=== PATIENT | female | born 1985 | race Caucasian/White ===

== ENCOUNTER 2017-03-19 18:23 | Emergency (ER) | payer OTHER | END 2017-03-19 19:31 | disposition home or self-care (01) | DX: S61.211A Laceration without foreign body of left index finger without damage to nail, initial encounter (principal); W45.8XXA Other foreign body or object entering through skin, initial encounter ==

== ENCOUNTER 2017-08-17 15:45 | Emergency (ER) | payer OTHER ==
[2017-08-17 15:49] VITALS: BP 125/74
[2017-08-17] MEDS ORDERED: predniSONE 20 MG TABLET PO STA (16:00)
--- NOTE | 2017-08-17 16:04 | ED Physician Documentation ---
PD HPI SKIN - Stated complaint Stated Complaint: RASH/[id number] - Chief complaint Chief Complaint: Wound - History obtained from History obtained from: Patient, Family - History of Present Illness Timing - onset: How many days ago (3) Timing - duration: Days (3) Timing - details: Gradual onset Pain level max: 0 Pain level now: 0 Location: RLE, LLE Quality / character: Itchy, Painful, Raised. No: Vesicular, Crusted, Swelling, Draining Improved by: Other (hasn't taken anything) Associated symptoms: No: Fever, Myalgias, Joint pain, Headache, Facial swelling , Dyspnea, Abd pain, N/V/D, Urinary sx - Additional information Additional information: Patient is a 31-year-old female, 1 para 0 who is approximately 39 weeks . Applied tea tree oil to the bilateral lower extremities and broke out in a rash. Complains of increased itching. Has not talked to her doctor about this. Is not having any abdominal pain, back pain, vaginal bleeding or leakage of fluid. Review of Systems Constitutional: denies: Fever, Chills GI: denies: Nausea, Vomiting, Diarrhea Musculoskeletal: denies: Neck pain, Back pain Neurologic: denies: Headache PD PAST MEDICAL HISTORY - Past Medical History Past Medical History: No Cardiovascular: None Neuro: None - Past Surgical History Past Surgical History: Yes - Present Medications Home Medications: Ambulatory Orders Medication Instructions Recorded Confirmed Pnv95/Ferrous Fumarate/FA 1 each PO DAILY 03/19/17 08/17/17 [ Tablet] Prednisone 40 mg PO DAILY #10 tablet 08/17/17 - Allergies Allergies/Adverse Reactions: Allergies Allergy/AdvReac Type Severity Reaction Status Date / Time amoxicillin Allergy Unknown Verified 03/19/17 18:29 nickel Allergy Rash Verified 03/19/17 18:29 - Social History Does the pt smoke?: No Smoking Status: Never smoker Does the pt drink ETOH?: No Does the pt have substance abuse?: No - Immunizations Immunizations are current?: Yes - POLST Patient has POLST: No PD ED PE NORMAL - Vitals Vital signs reviewed: Yes - General General: Alert and oriented X 3, No acute distress - Abdomen Abdomen: Other (Gravid) - Derm Derm: Warm and dry, Other (Diffuse maculopapular exanthem to the bilateral lower extremities from mid thigh down to the ankles. Blanches easily. Mildly erythematous. No vesicles. No pustules.) - Neuro Neuro: Alert and oriented X 3 Results - Vitals Vitals: Vital Signs - 24 hr 08/17/17 15:47 Temperature 36.4 C L Heart Rate 72 Respiratory 18 Rate Blood Pressure 125/74 O2 Saturation 100 Oxygen O2 Source Room air PD MEDICAL DECISION MAKING - ED course Complexity details: considered differential, d/w patient, d/w family ED course: Patient is a 31-year-old female who presents to the emergency department with what appears to be a bilateral lower extremity contact dermatitis from tea tree oil. Discussed the case with [place] [facility] environmental engineering technician, Dr. Sauer, who states she can use Benadryl for itching and we will place the patient on oral prednisone. Patient counseled regarding signs and symptoms for which I believe and urgent re -evaluation would be necessary. Patient with good understanding of and agreement to plan and is comfortable going home at this time This document was made in part using voice recognition software. While efforts are made to proofread this document, sound alike and grammatical errors may occur. Departure - Departure Disposition: 01 Home, Self Care Clinical Impression: Contact dermatitis Qualifiers: Contact dermatitis type: allergic Contact dermatitis trigger: drugs in contact with skin Qualified Code(s): L23.3 - Allergic contact dermatitis due to drugs in contact with skin Condition: Good Instructions: ED Dermatitis Contact Follow-Up: Provider,Other [Primary Care Provider] - Within 1 week Prescriptions: Prednisone 40 mg PO DAILY #10 tablet Comments: [place] Return if you worsen. You are okay to take benadryl for itching as well. Discharge Date/Time: 08/17/17 16:25
[2017-08-17] MEDS ORDERED: predniSONE 10 MG TABLET ONE (16:17)
== END 2017-08-17 16:25 | disposition home or self-care (01) ==
LOC: ED 15:45
DX: O99.713 Diseases of the skin and subcutaneous tissue complicating pregnancy, third trimester (principal); Z3A.39 39 weeks gestation of pregnancy; L23.89 Allergic contact dermatitis due to other agents
CPT/HCPCS: 99283; A9270

== ENCOUNTER 2019-03-01 17:38 | Emergency (ER) | payer OTHER ==
[2019-03-01] MEDS ORDERED: IBUPROFEN 800 MG TABLET PO STA (18:56)
--- NOTE | 2019-03-01 19:00 | ED Physician Documentation ---
PD HPI HEENT - Stated complaint Stated Complaint: FLU SYMPT - Chief complaint Chief Complaint: Heent - History obtained from History obtained from: Patient - History of Present Illness Timing - onset: Last night (She became acutely ill last night with fever to 102, body aches, runny nose but no sore throat. She has been coughing. Nonproductive. No shortness of breath. Her son was recently sick with a similar illness. She denies recent travel.) Review of Systems Constitutional: reports: Fever, Chills, Myalgias, Fatigue Ears: denies: Ear pain Nose: reports: Rhinorrhea / runny nose Throat: denies: Sore throat Respiratory: reports: Cough. denies: Dyspnea PD PAST MEDICAL HISTORY - Past Medical History Cardiovascular: None - Past Surgical History Past Surgical History: Yes - Present Medications Home Medications: Ambulatory Orders Medication Instructions Recorded Confirmed Pnv95/Ferrous Fumarate/FA 1 each PO DAILY 03/19/17 08/17/17 [ Tablet] predniSONE [Prednisone] 40 mg PO DAILY #10 tablet 08/17/17 Ibuprofen [Motrin] 800 mg PO Q8H PRN #30 tablet 03/01/19 - Allergies Allergies/Adverse Reactions: Allergies Allergy/AdvReac Type Severity Reaction Status Date / Time amoxicillin Allergy Unknown Verified 03/01/19 17:48 nickel Allergy Rash Verified 03/01/19 17:48 - Social History Does the pt smoke?: No Smoking Status: Never smoker Does the pt drink ETOH?: No Does the pt have substance abuse?: No - Immunizations Immunizations are current?: Yes - POLST Patient has POLST: No PD ED PE NORMAL - Vitals Vital signs reviewed: Yes - General General: Alert and oriented X 3, No acute distress - HEENT HEENT: PERRL, Ears normal, Pharynx benign - Neck Neck: Supple, no meningeal sign, No bony TTP - Cardiac Cardiac: RRR, No murmur - Respiratory Respiratory: No respiratory distress, Clear bilaterally - Abdomen Abdomen: Soft, Non tender - Back Back: No CVA TTP, No spinal TTP - Derm Derm: Normal color, Warm and dry, No rash - Neuro Neuro: Alert and oriented X 3, Normal speech Results - Vitals Vitals: Vital Signs - 24 hr 03/01/19 17:45 Temperature 37.9 C H Heart Rate 107 H Respiratory 20 Rate Blood Pressure 138/85 H O2 Saturation 99 Oxygen O2 Source Room air - Labs Labs: Laboratory Tests 03/01/19 03/01/19 18:23 19:03 Urine Color YELLOW Urine Clarity CLEAR Urine pH 7.5 Ur Specific [place] <=1.005 Urine Protein NEGATIVE Urine Glucose (UA) NEGATIVE Urine Ketones NEGATIVE Urine Occult Blood TRACE-LYSE Urine Nitrite NEGATIVE Urine Bilirubin NEGATIVE Urine Urobilinogen 0.2 (NORMAL) Ur Leukocyte Esterase TRACE H Urine RBC 0-5 Urine WBC 4-5 Ur Squamous Epith Cells MOD Squamous H Urine Bacteria None Seen Ur Microscopic Review INDICATED Urine Culture Comments NOT INDICATED Urine HCG, Qual NEGATIVE Influenza A (Rapid) Negative Influenza B (Rapid) Negative PD MEDICAL DECISION MAKING - ED course ED course: This is a 33-year-old well-appearing woman who presents with an acute flulike illness. Flu swab negative. Conservative care and time off of work was advised. Departure - Departure Disposition: Home, Self Care Clinical Impression: Viral syndrome Condition: Good Record reviewed to determine appropriate education?: Yes Instructions: ED Viral Syndrome Prescriptions: Ibuprofen [Motrin] 800 mg PO Q8H PRN #30 tablet PRN Reason: PAIN &/OR FEVER Comments: Call your doctor to arrange a follow-up appointment, make the next available appointment. In the interim, return anytime if worse or if new symptoms develop. Drink plenty of fluids Your blood pressure was elevated today on check into the emergency department. This does not mean that you have hypertension, it is a common phenomenon to come to the emergency department and have elevated blood pressure. I recommend that you see your primary care physician within the week to have it rechecked when you are feeling better. Forms: Activity restrictions
[2019-03-01 19:23] LABS: BILIRUBIN,URINE NEGATIVE (NEGATIVE); GLUCOSE, URINE (UA) NEGATIVE (NEGATIVE); KETONES,URINE (UA) NEGATIVE (NEGATIVE); LEUKOCYTE ESTERASE, URINE TRACE (NEGATIVE); NITRITE,URINE NEGATIVE (NEGATIVE); OCCULT BLOOD,URINE TRACE-LYSE (NEGATIVE); PH,URINE 7.5 PH (5.0-7.5); PROTEIN,URINE NEGATIVE (NEGATIVE); UROBILINOGEN,URINE 0.2 (NORMAL) E.U./dL (NORMAL)
[2019-03-01 19:30] LABS: CLARITY,URINE CLEAR (CLEAR); HCG UR QUAL NEGATIVE
[2019-03-01 19:36] LABS: BACTERIA,URINE None Seen /HPF (None Seen); RBC,URINE 0-5 /HPF (0-5); SQUAMOUS EPITHELIAL CELL,UR MOD Squamous (<= Few)
[2019-03-01 20:03] VITALS: BP 126/82
== END 2019-03-01 20:18 | disposition home or self-care (01) ==
LOC: ED 17:38
DX: B34.9 Viral infection, unspecified (principal); R03.0 Elevated blood-pressure reading, without diagnosis of hypertension
CPT/HCPCS: 81001; 81025; 87275; 87276; 99283; A9270; 36415; 81003; 87086

== ENCOUNTER 2019-09-03 08:43 | Emergency (ER) | payer OTHER ==
[2019-09-03 08:57] VITALS: BP 108/78
[2019-09-03] MEDS ORDERED: CHERRY SYRUP 10 ML UDC PO ONE (09:16)
[2019-09-03] MEDS ORDERED: DEXAMETHASONE 10 MG/ML VIAL PO STA (09:16)
--- NOTE | 2019-09-03 09:46 | ED Physician Documentation ---
PD HPI HEENT - Stated complaint Stated Complaint: NAUSEA/BODY ACHES - Chief complaint Chief Complaint: General - History obtained from History obtained from: Patient, Family - History of Present Illness Timing - onset: How many days ago (2) Timing - duration: Days (2) Timing - details: Gradual onset, Still present Location: Throat Improves: Medication Worsens: Swalllowing Associated symptoms: Fever, Congestion, Rhinorrhea Similar symptoms before: Diagnosis (strep and viral infection) Recently seen: Not recently seen - Additional information Additional information: Previously well 33-year-old female has developed a sore throat and body aches beginning yesterday. She is having worsening through the night.She has had viral URI previously and strep previously Review of Systems Constitutional: reports: Fever, Myalgias, Fatigue Eyes: denies: Decreased vision Ears: denies: Ear pain Nose: reports: Rhinorrhea / runny nose, Congestion Throat: reports: Sore throat Cardiac: denies: Chest pain / pressure, Palpitations Respiratory: denies: Dyspnea, Cough GI: denies: Vomiting PD PAST MEDICAL HISTORY - Past Medical History Past Medical History: No Cardiovascular: None - Past Surgical History Past Surgical History: No - Present Medications Home Medications: Ambulatory Orders Medication Instructions Recorded Confirmed Pnv95/Ferrous Fumarate/FA 1 each PO DAILY 03/19/17 08/17/17 [ Tablet] predniSONE [Prednisone] 40 mg PO DAILY #10 tablet 08/17/17 Ibuprofen [Motrin] 800 mg PO Q8H PRN #30 tablet 03/01/19 - Allergies Allergies/Adverse Reactions: Allergies Allergy/AdvReac Type Severity Reaction Status Date / Time amoxicillin Allergy Unknown Verified 09/03/19 08:57 nickel Allergy Rash Verified 09/03/19 08:57 - Social History Does the pt smoke?: No Smoking Status: Never smoker Does the pt drink ETOH?: Yes Does the pt have substance abuse?: No - Immunizations Immunizations are current?: Yes - POLST Patient has POLST: No PD ED PE NORMAL - Vitals Vital signs reviewed: Yes (normal ) - General General: Alert and oriented X 3, No acute distress, Well developed/nourished - HEENT HEENT: Atraumatic, PERRL, EOMI, Ears normal, Other (The pharynx is with 2+ tonils without exudate. ) - Neck Neck: Supple, no meningeal sign, No bony TTP - Cardiac Cardiac: RRR, No murmur - Respiratory Respiratory: No respiratory distress, Clear bilaterally - Abdomen Abdomen: Soft, Non tender - Back Back: No CVA TTP, No spinal TTP - Derm Derm: Normal color, Warm and dry, No rash - Extremities Extremities: No deformity, No edema - Neuro Neuro: Alert and oriented X 3, accountancy professor 2-12 intact, No motor deficit, No sensory deficit, Normal speech Eye Opening: Spontaneous Motor: Obeys Commands Verbal: Oriented GCS Score: 15 - Psych Psych: Normal mood, Normal affect Results - Vitals Vitals: Vital Signs - 24 hr 09/03/19 08:55 Temperature 37.0 C Heart Rate 91 Respiratory 16 Rate Blood Pressure 108/78 O2 Saturation 97 Oxygen O2 Source Room air - Labs Labs: Laboratory Tests 09/03/19 09:10 Group A Strep Rapid Negative PD MEDICAL DECISION MAKING - ED course Complexity details: reviewed results, re-evaluated patient, considered differential, d/w patient, d/w family ED course: 33-year-old female with a sore throat and body aches has a negative rapid strep her pharynx does not look particularly inflamed today. Strep culture is pending she is diagnosed with viral URI. She is administered 10 mg of dexamethasone p.o. Departure - Departure Disposition: 01 Home, Self Care Clinical Impression: Viral pharyngitis Condition: Stable Instructions: ED Pharyngitis Viral Report Pending Follow-Up: RADHA Braden [Provider Group] Forms: Activity restrictions
== END 2019-09-03 09:55 | disposition home or self-care (01) ==
LOC: ED 08:43
DX: J02.8 Acute pharyngitis due to other specified organisms (principal); B97.89 Other viral agents as the cause of diseases classified elsewhere; J06.9 Acute upper respiratory infection, unspecified
CPT/HCPCS: 87070; 87430; 99283; 99284; A9270

== ENCOUNTER 2021-11-28 13:33 | Emergency (ER) | payer OTHER ==
--- NOTE | 2021-11-28 13:50 | ED Physician Documentation ---
PD HPI ABD PAIN - Stated complaint Stated Complaint: LWR ABD PX/NAUSEA - Chief complaint Chief Complaint: Abd Pain - History obtained from History obtained from: Patient - History of Present Illness Timing - onset: How many days ago (3) Timing - duration: Days (3) Timing - details: Gradual onset, Still present, Waxing and waning Quality: Cramping, Sharp, Pain Location: RLQ, Suprapubic Improved by: Laying still Worsened by: Moving, Position, Palpation Associated symptoms: Nausea, Diarrhea, Constipation. No: Vomiting, Loss of appetite Similar symptoms before: No diagnosis Recently seen: Not recently seen - Additional information Additional information: Previously well 35-year-old female has developed episodes of right lower quadr ant abdominal pain over the past 3 months. She has had pain that has resolved and it has returned. She was able to eat this morning and her pain is in the right lower quadrant. She has not had a fever associated with this she has had some nausea but no vomiting. She has had a and she has just started to have menses again in August. She believes she is may be in the middle of her cycle right now. She has not had these problems previously. She has not had a fever she has been able to eat and she has had waxing and waning of her pain. She has had episodes of this pain previously with resolution. Review of Systems Constitutional: denies: Fever Eyes: denies: Decreased vision Ears: denies: Ear pain Nose: denies: Congestion Throat: denies: Sore throat Cardiac: denies: Chest pain / pressure, Palpitations Respiratory: denies: Dyspnea, Cough GI: reports: Abdominal Pain, Nausea, Constipation, Diarrhea. denies: Vomiting : denies: Dysuria, Frequency Skin: denies: Rash Musculoskeletal: denies: Neck pain, Back pain, Extremity pain PD PAST MEDICAL HISTORY - Past Medical History Cardiovascular: None - Past Surgical History Past Surgical History: No - Present Medications Home Medications: Ambulatory Orders Medication Instructions Recorded Confirmed Pnv No.95/Ferrous Fum/Folic AC 1 each PO DAILY 03/19/17 11/28/21 [ Tablet] Cholecalciferol [Vitamin D3] 25 mcg PO DAILY 11/28/21 11/28/21 Magnesium Oxide 400 mg PO DAILY 11/28/21 11/28/21 [place]-3/Dha/Epa/Fish Oil [Fish Oil 1 each PO DAILY 11/28/21 11/28/21 1,000 mg Softgel] - Allergies Allergies/Adverse Reactions: Allergies Allergy/AdvReac Type Severity Reaction Status Date / Time amoxicillin Allergy Unknown Verified 11/28/21 13:46 nickel Allergy Rash Verified 11/28/21 13:46 - Social History Does the pt smoke?: No Smoking Status: Never smoker Does the pt drink ETOH?: Yes Does the pt have substance abuse?: No - Immunizations Immunizations are current?: Yes - POLST Patient has POLST: No PD ED PE NORMAL - Vitals Vital signs reviewed: Yes (hypertensive ) - General General: Alert and oriented X 3, No acute distress, Well developed/nourished - HEENT HEENT: Atraumatic, PERRL, EOMI - Neck Neck: Supple, no meningeal sign, No bony TTP - Cardiac Cardiac: RRR, No murmur - Respiratory Respiratory: No respiratory distress, Clear bilaterally - Abdomen Abdomen: Normal bowel sounds, Soft, Non distended, No organomegaly, Other (RLQ tenderness with garding no referred tenderness) - Back Back: No CVA TTP, No spinal TTP - Derm Derm: Normal color, Warm and dry, No rash - Extremities Extremities: No deformity, No edema - Neuro Neuro: Alert and oriented X 3, physical sciences professor 2-12 intact, No motor deficit, No sensory deficit, Normal speech Eye Opening: Spontaneous Motor: Obeys Commands Verbal: Oriented GCS Score: 15 - Psych Psych: Normal mood, Normal affect Results - Vitals Vitals: Vital Signs - 24 hr 11/28/21 11/28/21 13:44 14:21 Temperature 36.2 C L Heart Rate 57 L 74 Respiratory 16 16 Rate Blood Pressure 151/70 H 139/68 H O2 Saturation 100 100 Oxygen O2 Source Room air - Labs Labs: Laboratory Tests 11/28/21 11/28/21 11/28/21 14:10 14:10 14:15 WBC 9.7 RBC 4.43 Hgb 14.0 Hct 40.8 MCV 92.1 MCH 31.6 H MCHC 34.3 RDW 12.0 Plt Count 208 MPV 10.0 Neut # (Auto) 5.8 Lymph # (Auto) 3.3 [place] # (Auto) 0.4 Eos # (Auto) 0.1 Baso # (Auto) 0.1 Absolute Nucleated RBC 0.00 Nucleated RBC % 0.0 Sodium 138 Potassium 4.0 Chloride 104 Carbon Dioxide 26 Anion Gap 8.0 BUN 10 Creatinine 1.0 Estimated GFR (MDRD) 63 L Glucose 88 Calcium 8.9 Total Bilirubin 0.6 AST 16 ALT 13 Alkaline Phosphatase 42 Total Protein 6.8 Albumin 4.1 Globulin 2.7 Albumin/Globulin Ratio 1.5 Lipase 36 Urine Color YELLOW Urine Clarity CLEAR Urine pH 6.5 Ur Specific [place] 1.010 Urine Protein NEGATIVE Urine Glucose (UA) NEGATIVE Urine Ketones NEGATIVE Urine Occult Blood NEGATIVE Urine Nitrite NEGATIVE Urine Bilirubin NEGATIVE Urine Urobilinogen 0.2 (NORMAL) Ur Leukocyte Esterase NEGATIVE Ur Microscopic Review NOT INDICATED Urine Culture Comments NOT INDICATED Urine HCG, Qual NEGATIVE - Rads (name of study) pelvic u/s Radiology: Prelim report reviewed (Report from tech all imaging is done transabdominal there is no torsion there is a right paraovarian simple cyst.), EMP read indepedently, See rad report PD MEDICAL DECISION MAKING - ED course Complexity details: reviewed results, re-evaluated patient, considered differential, d/w patient ED course: 35-year-old female restarted her menses after as developed right lower quadrant abdominal cramping and this appears to be midcycle and this is occurred previous months as well. She has normal white blood cell count is able to eat and a pelvic ultrasound demonstrates a nontorsed ovary with a simple cyst. I suspect this is reason for the patient's pain and she declined pain medication. She felt this was most consistent with the way her symptoms have behaved. She will follow-up with her primary if she desires to try oral contraceptive for control of symptoms. Departure - Departure Disposition: 01 Home, Self Care Clinical Impression: Cyst of ovary Qualifiers: Laterality: right Qualified Code(s): N83.201 - Unspecified ovarian cyst, right side Condition: Stable Instructions: ED Cyst Ovarian Follow-Up: Primary Care Rajendra Chance [Provider Group] Comments: Stephanie, today looks like you have a simple cyst on the right ovary. This will likely cause you a problem with cramping-like pain in the middle of your cycle for 1 to 3 days. If the pain becomes intolerable this can be resolved with the use of control pills. I have given you a number for a clinic to follow-up with an [facility]. Discharge Date/Time: 11/28/21 15:06
[2021-11-28 14:18] LABS: BASOPHILS # (AUTO) 0.1 10^3/uL (0.0-0.1); BASOPHILS % (AUTO) 0.6 %; EOSINOPHILS # (AUTO) 0.1 10^3/uL (0.0-0.7); EOSINOPHILS % (AUTO) 0.6 %; HCT - HEMATOCRIT 40.8 % (37.0-47.0); LYMPHOCYTES # (AUTO) 3.3 10^3/uL (1.5-3.5); LYMPHOCYTES % (AUTO) 34.5 %; MEAN CORPUSCULAR HEMOGLOBIN 31.6 pg (27.0-31.0); MEAN CORPUSCULAR HGB CONC 34.3 g/dL (32.0-36.0); MEAN CORPUSCULAR VOLUME 92.1 fL (81.0-99.0); MONOCYTES # (AUTO) 0.4 10^3/uL (0.0-1.0); MONOCYTES % (AUTO) 4.2 %; NEUTROPHILS # (AUTO) 5.8 10^3/uL (1.5-6.6); PLT - PLATELET COUNT 208 10^3/uL (130-450); RED BLOOD COUNT 4.43 10^6/uL (4.20-5.40); WHITE BLOOD COUNT 9.7 x10^3/uL (4.8-10.8)
[2021-11-28 14:22] VITALS: BP 139/68
[2021-11-28 14:29] LABS: BILIRUBIN,URINE NEGATIVE (NEGATIVE); GLUCOSE, URINE (UA) NEGATIVE (NEGATIVE); KETONES,URINE (UA) NEGATIVE (NEGATIVE); LEUKOCYTE ESTERASE, URINE NEGATIVE (NEGATIVE); NITRITE,URINE NEGATIVE (NEGATIVE); OCCULT BLOOD,URINE NEGATIVE (NEGATIVE); PH,URINE 6.5 PH (5.0-7.5); PROTEIN,URINE NEGATIVE (NEGATIVE); UROBILINOGEN,URINE 0.2 (NORMAL) E.U./dL (NORMAL)
[2021-11-28 14:29] LABS: ALBUMIN 4.1 g/dL (3.2-5.5); ALBUMIN/GLOBULIN RATIO 1.5 (1.0-2.2); BILIRUBIN,TOTAL 0.6 mg/dL (0.2-1.0); CALCIUM 8.9 mg/dL (8.5-10.3); TOTAL PROTEIN 6.8 g/dL (6.7-8.2)
[2021-11-28 14:30] LABS: CLARITY,URINE CLEAR (CLEAR); HCG UR QUAL NEGATIVE
--- NOTE | 2021-11-28 15:51 | Ultrasound Report ---
PROCEDURE: Pelvic w/Doppler Complete INDICATIONS: PELVIC PAIN RT TECHNIQUE: Real-time scanning was performed of the pelvic organs, with image documentation. Additional endovagi nal scanning was necessary due to incomplete visualization of the adnexal and endometrial structures by transabdominal scanning. COMPARISON: None. FINDINGS: No pathologic free abdominal or pelvic fluid. Uterus: Uterus is enlarged in size at 9.7 x 5.2 x 6.8 cm. No discrete uterine fibroid is seen. The endometrium measures 10.4 mm in combined thickness. No gross endometrial mass or fluid. Ovaries: Right ovary measures 4.5 x 1.1 x 3.2 cm in size. Left ovary measures 3 x 2.3 x 3.3 cm in si ze. 2.1 x 0.8 x 1 cm right paraovarian cyst is seen. No solid-appearing ovarian lesion. Normal blood flow is seen in bilateral ovaries on color Doppler images. IMPRESSION: 1. Bulky appearing uterus. No discrete uterine fibroid. No endometrial mass or fluid. 2. Right paraovarian simple cyst as above. No solid-appearing ovarian lesions. No evidence of ovarian torsion. Reviewed by: Jhonatan Moreno MD on 11/28/2021 3:50 PM PST Approved by: Jhonatan Moreno MD on 11/28/2021 3:50 PM PST Station ID: [id number]
== END 2021-11-28 15:06 | disposition home or self-care (01) ==
LOC: ED 13:33
DX: N83.201 Unspecified ovarian cyst, right side (principal)
CPT/HCPCS: 36415; 80053; 81001; 81003; 81025; 83690; 85025; 87086; 93975; 99282; 99284

== ENCOUNTER 2022-05-03 20:04 | Outpatient (CLI) | payer OTHER ==
--- NOTE | 2022-05-04 13:44 | Ultrasound Report ---
PROCEDURE: OB Detailed Eval INDICATIONS: SUPERVISION OF OUTSIDE/PRIOR DATING DATA: Last menstrual period (LMP): 11/12/2021. LMP-based estimated date of delivery (PORTER): 08/19/2022. First dating scan (date and location): 01/10/2022, [facility]. Estimated date of delivery (PORTER) from first dating scan: 08/20/2022. TECHNIQUE: Real-time scanning was performed of the fetus, with image documentation and biometric measurements. Endovaginal scanning: Not performed COMPARISON: Pelvic ultrasound dated 11/28/2021 FINDINGS: General: A single living intrauterine gestation is present. Presentation: Breech Placenta: Placental position is posterior, without previa. Amniotic fluid index: 12.5 cm. heart rate: 148 beats per minute. Maternal cervical canal: 5.4 cm long; normal length is 2.5 cm or more. biometrics: Biparietal diameter: 5.8 cm, 23 weeks, 0 days Head circumference: 22.2 cm, 24 weeks, 3 days Abdominal circumference: 21.8 cm, 25 weeks, 4 days Femur length: 4.5 cm, 25 weeks, 0 days Estimated gestational age from initial scan: 24 weeks, 3 days. Composite gestational age from present scan: 24 weeks, 5 days. Estimated weight and percentile: 777 g, 74% Measurement variability in biometric dating: +/- 10 days from 12-20 weeks gestation, +/- 2 weeks from 20-30 weeks gestation, +/- 3 weeks at 30 weeks gestation or later. Anatomic survey: Neuro: Ventricles are normal at less than 10 mm. Cisterna magna is normal at 3-11 mm. Cerebellum i s normal in size and morphology. Nuchal skin fold: Normal at less than 6 mm between 14 and 20 weeks gestational age. Face: Nose and lips, facial profile are normal. Spine: No evidence for spina bifida. Heart: 4-chambered heart is present, with normal left ventricular outflow tract. The right ventricul ar outflow tract was not visualized. Diaphragm: Diaphragm is intact. Stomach: Left-sided stomach is present. Kidneys: No hydronephrosis. Normal is less than 5 mm in 2nd trimester, less than 7 mm in 3rd trimester. Cord: 3 vessel cord has orthotopic insertion. Bladder: Normal in size. Extremities: All 4 extremities are visualized. IMPRESSION: 1. Single live intrauterine gestation with a composite gestational age of 24 weeks and 5 days which i s concordant with dates by initial scan. 2. Normal sonographic ultrasound where visualized. The right ventricular outflow tract could no t be visualized. Reviewed by: Maya Mercado MD on 05/04/2022 1:43 PM PDT Approved by: Maya Mercado MD on 05/04/2022 1:43 PM PDT Station ID: [id number]
== END 2022-05-03 20:05 | disposition home or self-care (01) ==
LOC: DI 20:04
PROVIDERS: ATTEND Family Medicine
DX: Z34.92 Encounter for supervision of normal pregnancy, unspecified, second trimester (principal); Z3A.24 24 weeks gestation of pregnancy